=== PATIENT | female | born 1995 | race African-American/Black ===

== ENCOUNTER 2018-12-21 18:30 | Emergency (ER) | payer SELFPAY ==
[~2018-12-21] VITALS: Ht 157.5 cm; Wt 64.0 kg
[2018-12-21] MEDS: CYCLOBENZAPRINE 10MG TABLET PO ONE (22:46)
[2018-12-21] MEDS: KETOROLAC 60MG/2ML VIAL IM ONE (22:46)
[2018-12-22 00:31] VITALS: BP 110/60
== END 2018-12-22 00:32 | disposition home or self-care (01) ==
LOC: ER 19:11
DX: S39.012A Strain of muscle, fascia and tendon of lower back, initial encounter (principal); W01.0XXA Fall on same level from slipping, tripping and stumbling without subsequent striking against object, initial encounter; Y93.89 Activity, other specified; Y92.89 Other specified places as the place of occurrence of the external cause; Y99.8 Other external cause status
CPT/HCPCS: 96372; 99283; J1885